=== PATIENT | female | born 1990 | race Caucasian/White ===

== ENCOUNTER 2018-03-12 09:44 | Emergency (ER) | payer SELFPAY ==
[~2018-03-12] VITALS: Ht 180.3 cm; Wt 97.5 kg
--- NOTE | 2018-03-12 09:41 | Emergency Room Report ---
History of Present Illness General Chief Complaint: Behavioral Complaint Source: Patient, EMS Present Illness HPI 27-year-old female with a history of anxiety and depression reports that she became worked up regarding a custody mercado over her child, and she has been suicidal for the past 2 weeks as well as being homeless. She reports that [place], EMS was called due to her agitation and suicidality, and patient wants a glass of water and something to help her relax. Denies homicidal ideations, auditory hallucinations. She reports her R shoulder hurts after she tried to jump into traffic. She didn't bleed anywhere. Allergies: Coded Allergies: HALOPERIDOL (Unverified Allergy, Unknown, 03/12/18) LAMOTRIGINE (Verified Allergy, Unknown, 08/24/15) PENICILLINS (Verified Allergy, Unknown, 08/24/15) ZIPRASIDONE (Unverified Allergy, Unknown, 03/12/18) Patient History Past Medical History: see triage record Reviewed Nursing Documentation: PMH: Agreed; PSxH: Agreed Nursing Documentation-PMH Hx Asthma: Yes History Of Psychiatric Problem: Yes Review of Systems All Other Systems: negative except mentioned in HPI Physical Exam Vital Signs Date Time Temp Pulse Resp B/P (MAP) Pulse Ox O2 Delivery O2 Flow Rate FiO2 03/12/18 09:34 98.0 86 20 128/60 100 Room Air 98.1 Sp02 EP Interpretation: reviewed, normal General Appearance: no apparent distress, alert, non-toxic Head: normocephalic Eyes: bilateral eye normal inspection, bilateral eye PERRL, bilateral eye EOMI ENT: normal ENT inspection, hearing grossly normal, normal pharynx, no angioedema, normal voice, moist mucus membranes Neck: normal inspection, full range of motion, supple, supple/symm/no masses Respiratory: chest non-tender, lungs clear, normal breath sounds, chest symmetrical, palpation of chest normal Cardiovascular #1: normal peripheral pulses, regular rate, rhythm Cardiovascular #2: 2+ radial (R), 2+ radial (L) Gastrointestinal: normal inspection, non tender, soft, no mass, no guarding, no rebound Rectal: deferred Genitourinary: normal inspection, no CVA tenderness Musculoskeletal: back normal, gait/station normal, normal range of motion - No limitations in RUE where patient reports pain s/p jumping in front of a car, no contusions/abrasions either, non-tender, no calf tenderness Neurologic: alert, responsive, senior office support assistant sosa III-XII nml as tested, motor strength/tone normal, sensory intact, speech normal Psychiatric: memory normal, no suicidal/homicidal ideation, anxious Skin: normal color, no rash, warm/dry, normal turgor Lymphatic: no adenopathy Medical Decision Making Diagnostic Impression: Primary Impression: Suicidal thoughts ER Course Patient with suicidal thoughts, plan to jump into traffic. Patient is medically cleared, labs unremarkable other than the fact she has a UTI based on UA. Dr. Fernandez has been paged to evaluate patient. Last Vital Signs Date Time Temp Pulse Resp B/P (MAP) Pulse Ox O2 Delivery O2 Flow Rate FiO2 03/12/18 09:34 98.0 86 20 128/60 100 Room Air 98.1 MICHEAL GUZMAN M.D Mar 12, 2018 09:41
[~2018-03-12 09:44] MED LIST: ADVAIR 250-501 EACH INH; ALBUTEROL SULF8.5 GM INH; CLINDAMYCIN HC300 MG ORAL; MACROBID100 MG ORAL
[2018-03-12] MEDS ORDERED: LORazepam 1mg tab ORAL ONE (09:45)
[2018-03-12] MEDS ORDERED: LORazepam 1mg tab ONE (09:53)
[2018-03-12 10:00] VITALS: BP 106/73
[2018-03-12 10:40] LABS: BASOPHILS % (AUTO) 0.7 % (0.0-2.0); EOSINOPHILS % (AUTO) 0.5 % (0.0-3.0); HEMATOCRIT 52.1 % (37.0-47.0); HEMOGLOBIN 16.2 G/DL (12.0-16.0); LYMPHOCYTES % (AUTO) 16.9 % (20.0-45.0); MEAN CORPUSCULAR VOLUME 81 FL (80-99); NEUTROPHILS % (AUTO) 75.9 % (45.0-75.0); PLATELET COUNT 348 K/UL (150-450); RED BLOOD COUNT 6.41 M/UL (4.20-5.40); RED CELL DISTRIBUTION WIDTH 12.6 % (11.6-14.8); WHITE BLOOD COUNT 7.1 K/UL (4.8-10.8)
[2018-03-12 10:43] LABS: APPEARANCE,URINE TURBID; BILIRUBIN, URINE NEGATIVE (NEGATIVE); GLUCOSE, URINE (UA) NEGATIVE (NEGATIVE); KETONES,URINE 1+ (NEGATIVE); LEUKOCYTE ESTERASE ,URINE 3+ (NEGATIVE); NITRITE,URINE NEGATIVE (NEGATIVE); PH,URINE 5 (4.5-8.0); PROTEIN,URINE 2+ (NEGATIVE); UROBILINOGEN,URINE NORMAL MG/DL (0.0-1.0)
[2018-03-12 10:44] LABS: COLOR,URINE YELLOW
[2018-03-12 10:51] LABS: ANION GAP 10 mmol/L (5-15); BLOOD UREA NITROGEN 17 mg/dL (7-18); CARBON DIOXIDE 27 MMOL/L (21-32); CHLORIDE 101 MMOL/L (98-107); CREATININE 0.9 MG/DL (0.55-1.30); POTASSIUM 4.2 MMOL/L (3.5-5.1); SODIUM 138 MMOL/L (136-145)
[2018-03-12 10:58] LABS: ALANINE AMINOTRANSFERASE 23 U/L (12-78); ALBUMIN 3.7 G/DL (3.4-5.0); ALBUMIN/GLOBULIN RATIO 0.8 (1.0-2.7); ALKALINE PHOSPHATASE 85 U/L (46-116); ASPARTATE AMINO TRANSFERASE 19 U/L (15-37); BILIRUBIN,TOTAL 0.4 MG/DL (0.2-1.0)
[2018-03-12] MEDS ORDERED: NITROFURANTOIN100 M2 ORAL (11:50)
[2018-03-12 12:51] VITALS: BP 106/73
--- NOTE | 2018-03-12 14:30 | Consultation ---
History of Present Illness General Date patient seen: Mar 12, 2018 Chief Complaint: Behavioral Complaint Present Illness HPI 27-year-old female with a history of meth use and anxiety stated that she has been overwhelmed regarding a custody mercado over her child, and she has been suicidal for the past 2 weeks the pt is homeless. She reports that while she was at the bus stop, EMS was called due to her agitation and suicidality. the pt stated that she does not want to get into details. the pt was irritable and uncooperative with the exam the pt stated that she wanted to go to psych. She stated that she jumped into the traffics and she hurt her shoulder. per er doctor the pt shoulder is intact without injuries. the pt stated that she has to go to psych unit since she was stressed out. the pt did not report si to this md and when spoke to her about her meth use she became agitated Allergies: Coded Allergies: HALOPERIDOL (Unverified Allergy, Unknown, 03/12/18) LAMOTRIGINE (Verified Allergy, Unknown, 08/24/15) PENICILLINS (Verified Allergy, Unknown, 08/24/15) ZIPRASIDONE (Unverified Allergy, Unknown, 03/12/18) Medication History Scheduled Clindamycin Hcl (Clindamycin Hcl), 300 MG ORAL THREE TIMES A DAY Fluticasone/Salmeterol (Advair 250-50 Diskus), 1 PUFF INH EVERY 12 HOURS Nitrofurantoin Monohyd/M-Cryst (Nitrofurantoin [place]-Mcr 100 mg), 100 MG ORAL Q12H Nitrofurantoin Monohyd/M-Cryst* (Macrobid 100 Mg*), 100 MG ORAL EVERY 12 HOURS Scheduled PRN Albuterol Sulfate* (Albuterol Sulfate Mdi*), 2 PUFF INH Q4H PRN for wheezing Patient History Limited by: medical condition History Provided By: Patient, Medical Record, PMD Healthcare decision maker Resuscitation status Advanced Directive on File Past Medical/Surgical History Past Medical/Surgical History: (1) Cellulitis (2) Abdominal pain (3) UTI (urinary tract infection) Review of Systems Psychiatric: Reports: prior hx, anxiety, depressed feelings, emotional problems Physical Exam General Appearance: no apparent distress, alert Neurologic: oriented x 3, responsive, depressed affect Last 24 Hour Vital Signs Date Time Temp Pulse Resp B/P (MAP) Pulse Ox O2 Delivery O2 Flow Rate FiO2 7/26/18 12:51 97.7 81 18 106/73 100 Room Air 97.7 03/12/18 10:00 97.7 81 18 106/73 100 Room Air 97.7 03/12/18 09:34 98.0 86 20 128/60 100 Room Air 98.1 Laboratory Tests Test 03/12/18 09:45 03/12/18 10:15 Urine Color Yellow Urine Appearance Turbid Urine pH 5 (4.5-8.0) Urine Specific [place] 1.020 (1.005-1.035) Urine Protein 2+ (NEGATIVE) H Urine Glucose (UA) Negative (NEGATIVE) Urine Ketones 1+ (NEGATIVE) H Urine Occult Blood 2+ (NEGATIVE) H Urine Nitrite Negative (NEGATIVE) Urine Bilirubin Negative (NEGATIVE) Urine Urobilinogen Normal MG/DL (0.0-1.0) Urine Leukocyte Esterase 3+ (NEGATIVE) H Urine RBC 5-10 /HPF (0 - 2) H Urine WBC 5-10 /HPF (0 - 2) H Urine Squamous Epithelial Cells Few /LPF (NONE/OCC) Urine Bacteria Many /HPF (NONE) H Urine Hyaline Casts 2-4 /LPF (NONE) H Urine Mucus Moderate /LPF (NONE/OCC) H Urine HCG, Qualitative Negative (NEGATIVE) Urine Opiates Screen Negative (NEGATIVE) Urine Barbiturates Screen Negative (NEGATIVE) Phencyclidine (PCP) Screen Negative (NEGATIVE) Urine Amphetamines Screen Positive (NEGATIVE) H Urine Benzodiazepines Screen Negative (NEGATIVE) Urine Cocaine Screen Negative (NEGATIVE) Urine Marijuana (THC) Screen Negative (NEGATIVE) White Blood Count 7.1 K/UL (4.8-10.8) Red Blood Count 6.41 M/UL (4.20-5.40) H Hemoglobin 16.2 G/DL (12.0-16.0) H Hematocrit 52.1 % (37.0-47.0) H Mean Corpuscular Volume 81 FL (80-99) Mean Corpuscular Hemoglobin 25.3 PG (27.0-31.0) L Mean Corpuscular Hemoglobin Concent 31.1 G/DL (32.0-36.0) L Red Cell Distribution Width 12.6 % (11.6-14.8) Platelet Count 348 K/UL (150-450) Mean Platelet Volume 7.9 FL (6.5-10.1) Neutrophils (%) (Auto) 75.9 % (45.0-75.0) H Lymphocytes (%) (Auto) 16.9 % (20.0-45.0) L Monocytes (%) (Auto) 6.0 % (1.0-10.0) Eosinophils (%) (Auto) 0.5 % (0.0-3.0) Basophils (%) (Auto) 0.7 % (0.0-2.0) Sodium Level 138 MMOL/L (136-145) Potassium Level 4.2 MMOL/L (3.5-5.1) Chloride Level 101 MMOL/L (98-107) Carbon Dioxide Level 27 MMOL/L (21-32) Anion Gap 10 mmol/L (5-15) Blood Urea Nitrogen 17 mg/dL (7-18) Creatinine 0.9 MG/DL (0.55-1.30) Estimat Glomerular Filtration Rate > 60 mL/min (>60) Glucose Level 101 MG/DL (74-106) Calcium Level 10.0 MG/DL (8.5-10.1) Total Bilirubin 0.4 MG/DL (0.2-1.0) Aspartate Amino Transf (AST/SGOT) 19 U/L (15-37) Alanine Aminotransferase (ALT/SGPT) 23 U/L (12-78) Alkaline Phosphatase 85 U/L (46-116) Total Protein 8.2 G/DL (6.4-8.2) Albumin 3.7 G/DL (3.4-5.0) Globulin 4.5 g/dL Albumin/Globulin Ratio 0.8 (1.0-2.7) L Salicylates Level 2.7 ug/mL (2.8-20) L Acetaminophen Level < 2 MCG/ML (10-30) L Serum Alcohol < 3 mg/dL Height (Feet): 5 Height (Inches): 11.00 Weight (Pounds): 215 Assessment/Plan Status: stable Assessment/Plan meth abuse meth wd dc to halfway the pt refused psych meds the pt is not at imminent dts/dto the pt maybe discharged Tana Fernandez MD Mar 12, 2018 14:30
== END 2018-03-12 12:56 | disposition home or self-care (01) ==
LOC: EDBD 09:44 → EMR 09:56
DX: N39.0 Urinary tract infection, site not specified (principal); B96.89 Other specified bacterial agents as the cause of diseases classified elsewhere; R45.851 Suicidal ideations; Z59.0 Homelessness
CPT/HCPCS: 36415; 80053; 80307; 81001; 81025; 85025; 87086; 99283; G0480; 80329